=== PATIENT | male | born 1960 | race Caucasian/White ===

== ENCOUNTER 2024-12-19 12:40 | Observation (INO) | payer OTHER ==
[~2024-12-19] VITALS: Ht 188 cm; Wt 63.3 kg
[2024-12-19] MEDS ORDERED: MIRT15 PO (13:25)
[2024-12-19] MEDS ORDERED: OMEP20ER PO (13:25)
[2024-12-19] MEDS ORDERED: Aspir 8181 MG PO (13:25)
[2024-12-19] MEDS ORDERED: SERT100 PO (13:25)
[2024-12-19] MEDS ORDERED: CREON DR 12,001 EACH PO (13:26)
[2024-12-19 14:29] LABS: Source, Urine Clean Catch
[2024-12-19 14:32] LABS: Appearance, Urine Clear (Clear); Bilirubin, Urine Neg (Neg); Blood, Urine 1+ (Neg); Color, Urine Yellow (P-Yellow); Glucose Qualitative, Urine Neg (Neg); Ketones, Urine Neg (Neg); Leukocyte Esterase, Urine Neg (Neg); Nitrite, Urine Neg (Neg); Protein, Urine Neg (Neg); Urobilinogen, Urine NORM (Normal)
[2024-12-19 14:38] LABS: Bacteria Rare /hpf; Red Blood Cells, Urine 0-2 /hpf (0-2); Squamous Epithelial Cells Not Seen /hpf (Few); White Blood Cells, Urine 0-2 /hpf (0-5)
[2024-12-19 14:47] LABS: BASOPHILS ABSOLUTE AUTO 0.06 K/mm3 (0.00-0.23); BASOPHILS PERCENT AUTO 1 % (0-2); EOSINOPHILS ABSOLUTE AUTO 0.21 K/mm3 (0.00-0.68); EOSINOPHILS PERCENT AUTO 4 % (0-6); Hematocrit 29.4 % (37.0-53.0); Hemoglobin 9.6 g/dL (13.5-17.5); IMMATURE GRAN ABSOLUTE AUTO 0.01 K/mm3 (0.00-0.10); IMMATURE GRAN PERCENT AUTO 0 % (0-1); LYMPHOCYTES ABSOLUTE AUTO 1.49 K/mm3 (0.84-5.20); LYMPHOCYTES PERCENT AUTO 31 % (21-46); MONOCYTES ABSOLUTE AUTO 0.44 K/mm3 (0.16-1.47); MONOCYTES PERCENT AUTO 9 % (4-13); Mean Corpuscular HGB 34.2 pg (26.0-34.0); Mean Corpuscular HGB Conc 32.7 g/dL (31.5-36.5); Mean Corpuscular Volume 105 fL (80-100); Mean Platelet Volume 9.8 fL (9.1-12.4); NEUTROPHILS ABSOLUTE AUTO 2.54 K/mm3 (1.96-9.15); NEUTROPHILS PERCENT AUTO 53 % (41-73); Platelet Count 192 K/mm3 (150-400); RDW Coefficient Variation 12.5 % (11.7-14.2); Red Blood Cell Count 2.81 M/mm3 (4.30-5.90); White Blood Cell Count 4.75 K/mm3 (4.00-11.30)
[2024-12-19 15:12] LABS: Bun/Creatinine Ratio 12.8 (12.0-20.0); Calcium, Blood 8.2 mg/dL (8.5-10.1); Creatinine, Blood 1.09 mg/dL (0.60-1.20); Magnesium, Blood 1.6 mg/dL (1.6-2.4); Phosphorus, Blood 3.6 mg/dL (2.5-4.9)
[2024-12-19] MEDS ORDERED: Acetaminophen 325 MG TABLET PO PRN (17:10)
[2024-12-19 19:12] VITALS: BP 114/82
[2024-12-19] MEDS ORDERED: Docusate Sodium 100 MG Cap PO SCH (21:00)
[2024-12-20 04:36] VITALS: BP 96/71
[2024-12-20 05:10] LABS: BASOPHILS ABSOLUTE AUTO 0.07 K/mm3 (0.00-0.23); BASOPHILS PERCENT AUTO 2 % (0-2); EOSINOPHILS ABSOLUTE AUTO 0.24 K/mm3 (0.00-0.68); EOSINOPHILS PERCENT AUTO 5 % (0-6); Hematocrit 28.3 % (37.0-53.0); Hemoglobin 9.2 g/dL (13.5-17.5); IMMATURE GRAN ABSOLUTE AUTO 0.01 K/mm3 (0.00-0.10); IMMATURE GRAN PERCENT AUTO 0 % (0-1); LYMPHOCYTES ABSOLUTE AUTO 1.27 K/mm3 (0.84-5.20); LYMPHOCYTES PERCENT AUTO 29 % (21-46); MONOCYTES PERCENT AUTO 9 % (4-13); Mean Corpuscular HGB 33.8 pg (26.0-34.0); Mean Corpuscular HGB Conc 32.5 g/dL (31.5-36.5); Mean Corpuscular Volume 104 fL (80-100); Mean Platelet Volume 10.1 fL (9.1-12.4); NEUTROPHILS ABSOLUTE AUTO 2.45 K/mm3 (1.96-9.15); NEUTROPHILS PERCENT AUTO 55 % (41-73); Platelet Count 205 K/mm3 (150-400); RDW Coefficient Variation 12.4 % (11.7-14.2); RDW Standard Deviation 47.6 fL (35.1-46.3); Red Blood Cell Count 2.72 M/mm3 (4.30-5.90); White Blood Cell Count 4.44 K/mm3 (4.00-11.30)
[2024-12-20 05:58] LABS: Magnesium, Blood 1.5 mg/dL (1.6-2.4)
[2024-12-20 05:59] LABS: Albumin, Blood 1.9 g/dL (3.4-5.0); Albumin/Globulin Ratio 0.6 (0.8-1.8); Bilirubin, Total 0.4 mg/dL (0.1-1.0); Bun/Creatinine Ratio 12.7 (12.0-20.0); Calcium, Blood 7.7 mg/dL (8.5-10.1); Creatinine, Blood 1.02 mg/dL (0.60-1.20); Globulin, Blood 3.2 g/dL (2.2-4.0); Potassium, Blood 3.9 mmol/L (3.5-5.5); Total Protein, Blood 5.1 g/dL (6.4-8.2)
[2024-12-20] MEDS ORDERED: Omeprazole 20 MG CapCR PO SCH (06:00)
--- NOTE | 2024-12-20 06:22 | NUR ---
SHIFT SUMMARY: Pt is admitted for general weakness and is a full code. Is alert and able to make needs known. ADLs have been mostly 1p but did not get out of bed. Denies pain or discomfort when asked.
[2024-12-20 07:25] VITALS: BP 104/73
[2024-12-20] MEDS ORDERED: Insulin Human Lispro 100 Units/ML 3ML Syringe SC SCH (07:30)
[2024-12-20] MEDS ORDERED: Mag Sulfate 1 GM/D5% 100ML 100 ML IV STA (08:08)
[2024-12-20] MEDS ORDERED: Ferrous Sulfate 325 MG Tab PO SCH (08:30)
--- NOTE | 2024-12-20 08:30 | NUR ---
pt laying in bed awake a/ox4 a bit slow to answer, flat affect, cooperative with care, follows commands well, denies pain, lungs are clear in upper ivory, dim in bases, resp even and unlabored, no cough noted, on r/a, hrr, no edema noted, ppp+1, cap refill<3 sec vs stable, afebrile, piv to lac, site is clear and patent, btx4, voids via urinal, abd flat soft nontender, reports several bm's yesterday and did not want stool softeners, voids without diff, skin c/w/d, maew, but is profoundly weak, cheryle, call light in reach.
[2024-12-20] MEDS ORDERED: Enoxaparin 40 MG/0.4 ML SYR SC SCH (09:00)
[2024-12-20] MEDS ORDERED: Amylase/Lipase/Protease DR Cap 12,000 PO SCH (09:00)
[2024-12-20] MEDS ORDERED: Aspirin 81 MG TabEC PO SCH (09:00)
[2024-12-20] MEDS ORDERED: Sertraline HCl 100 MG Tab PO SCH (09:00)
[2024-12-20] MEDS ORDERED: Multivitamins 1 Tab PO SCH (12:00)
[2024-12-20 16:25] VITALS: BP 97/76
--- NOTE | 2024-12-20 19:06 | NUR ---
pt was up to recliner chair today, and worked with P.T. very weak, no acute changes this shift. call light in reach.
[2024-12-20 19:47] VITALS: BP 102/74
[2024-12-20] MEDS ORDERED: Mirtazapine 15 MG Tab PO SCH (21:00)
[2024-12-21] VITALS (8 sets, daily range): BP systolic 82–116; BP diastolic 63–80
[2024-12-21] MEDS ORDERED: NS 500 ML IV SCH (00:20)
--- NOTE | 2024-12-21 06:39 | NUR ---
SHIFT SUMMARY: Pt is admitted for general weakness and is a full code. Is alert and able to make needs known. ADLs have been mostly 1p but did not get out of bed. Denies pain or discomfort when asked. BP was reported at 88/64 map 72. Reported to provider who gave T.O. of 500ml ns bolus. Bp after bolus machine was 82/63. Manual was 96/74 map of 81. Informed charge nurse was told to keep an eye on PT.
--- NOTE | 2024-12-21 10:27 | NUR ---
pt laying in bed awake a/ox4, flat afffect, pleasant and cooperative with care, follows commands well, denies pain, lungs are clear in upper ivory, dim in bases, resp even and unlabored, no cough noted, hrr, no edema noted, ppp+1, cap refill<3 sec, piv to rfa and rac, site is clear and patent, btx4, abd flat soft nontender, nontender, voids without diff, skin c/w/d, maew, profoundly weak, cheryle, call light in reach.
[2024-12-21] MEDS ORDERED: Amylase/Lipase/Protease DR Cap 12,000 PO SCH (11:30)
[2024-12-21] MEDS ORDERED: Spironolactone 25 MG Tab PO SCH (12:08)
[2024-12-21] MEDS ORDERED: Spironolactone 50 MG Tab PO SCH (13:00)
--- NOTE | 2024-12-21 14:16 | NUR ---
Pt sitting up in a chair, called nurse in room to report his right side of his jodi area is on fire burning, he didn't know if it's a rash or not, nurse noted a swelling in pubic area that he can not tolerate to be touched, no rash noted, called Dr. Enamorado, he will come to see him and ordered a surgical consult, Dr. Pedroza answering service notified. pt is in the bathroom at this time, capacity management specialist in room assisting him. call light in reach.
--- NOTE | 2024-12-21 18:41 | NUR ---
Pt resting in bed, he was assisted to the bathroom to use the toilet, was going to take a shower but decided against it, resting in bed at this time, he states the swelling in his pubic area is not painful if he doesn't move, if he moves it's severe, no further changes this shift, call light in reach.
[2024-12-22 04:20] VITALS: BP 101/73
[2024-12-22 05:46] LABS: Bun/Creatinine Ratio 16.3 (12.0-20.0); Calcium, Blood 7.9 mg/dL (8.5-10.1); Creatinine, Blood 0.98 mg/dL (0.60-1.20); Potassium, Blood 4.4 mmol/L (3.5-5.5)
[2024-12-22 07:38] VITALS: BP 99/74
[2024-12-22] MEDS ORDERED: Spironolactone 25 MG Tab PO SCH (09:00)
[2024-12-22 16:04] VITALS: BP 109/75
--- NOTE | 2024-12-22 18:13 | NUR ---
SHIFT SUMMARY PT A&OX4, VSS, AMB W/ ASSIST, TOLERATING PO, VOIDING, AND PAIN MANAGED. PHYSICAL THERAPY ATTEMPTED, BUT PT REFUSED STATING HE WAS UNABLE TO PARTICIPATE DUE TO PELVIC PAIN W/ MOVEMENT. THIS RN CALLED OFFICE ON SURGICAL CONSULT. PT AWAITING SURGEON TO ROUND. D/C PLACEMENT IN PROGRESS AT THIS TIME. NO OTHER ACUTE CHANGES. CALL LIGHT WITHIN REACH AND PT ABLE TO MAKE NEEDS KNOWN.
[2024-12-22 19:04] VITALS: BP 110/81
[2024-12-23 03:30] VITALS: BP 99/64
--- NOTE | 2024-12-23 04:10 | NUR ---
SHIFT SUMMARY 64 YR M ADMITTED ON 12/19/24. FULL CODE. NO ACUTE CHANGES THIS SHIFT. PT HAD NO C/O PAIN OR DISCOMFORT THROUGHOUT THE NIGHT. HE IS PLEASANT AND COOPERATIVE WITH CARE AND ABLE TO MAKE HIS NEEDS KNOWN. NO NEW CHANGES TO REPORT. BED IN LOW POSITION AND CALL LIGHT IN REACH.
[2024-12-23 05:32] LABS: Bun/Creatinine Ratio 22.5 (12.0-20.0); Creatinine, Blood 0.89 mg/dL (0.60-1.20)
[2024-12-23 07:32] VITALS: BP 98/65
[2024-12-23 16:20] VITALS: BP 109/80
--- NOTE | 2024-12-23 17:53 | NUR ---
SHIFT SUMMARY RESEARCH PROFESSOR ROUNDED ON PT. NO SURGICAL INTERVENTION FOR SUSPECTED HERNIA AT THIS TIME. PT DID NOT C/O PAIN OR DISCOMFORT T/O SHIFT. NO ACUTE CHANGES. PLAN FOR D/C TOMORROW HOME W/ HH. CALL LIGHT IN REACH AND PT ABLE TO MAKE NEEDS KNOWN.
[2024-12-23 19:55] VITALS: BP 102/74
[2024-12-24 03:55] VITALS: BP 99/73
--- NOTE | 2024-12-24 05:22 | NUR ---
SHIFT SUMMARY NO ACUTE CHANGES THROUGHOUT THE SHIFT. PT INDEPENDENTLY USED URINAL THROUGHOUT THE NIGHT AND APPEARS TO HAVE SLEPT WELL. USING CALL LIGHT APPROPRIATELY. NO PAIN REPORTED. VITAL SIGNS STABLE. CALL LIGHT IN REACH, WILL REPORT TO ONCOMING RN.
[2024-12-24 07:36] VITALS: BP 98/71
[2024-12-24] MEDS ORDERED: GlipiZIDE 5 MG TabCR PO SCH (08:00)
[2024-12-24] MEDS ORDERED: Ondansetron 4 MG TAB PO PRN (16:20)
[2024-12-24 16:50] VITALS: BP 113/80
--- NOTE | 2024-12-24 18:46 | NUR ---
DAY SUMMARY A&OX4, VSS, DENIED PAIN THIS SHIFT, NO C/O ANY KIND, BEDRESTING AT THIS TIME, CALL LIGHT IN REACH, WILL CONT TO MONITOR UNTIL REPORT GIVEN TO ONCOMING NURSE.
[2024-12-24 20:09] VITALS: BP 106/83
[2024-12-25 03:15] VITALS: BP 100/74
--- NOTE | 2024-12-25 06:44 | NUR ---
SHIFT SUMMARY VSS. APPEARS COMFORTABLE. CBG STABLE. PUT ON BED ALARM. COMPLIANT TO CARE. PREFERS TO BE UNDISTURBED ON SLEEP THEN PUT BED ALARM ON. SEEMS HE SLEPT VERY WELL AT NIGHT. CONTINENT BUT THE BED GOT SOILED BECAUSE OF SPILLING URINE FROM THE URINAL. BEDDINGS CHANGED AND APPLIED GOWN WITH LONG SLEEVES TO MINIMIZE PT SCRATCHING ALL OVER HIS BODY HIS SKIN HAS MULTIPLE UNHEALED WOUNDS.
[2024-12-25 08:02] VITALS: BP 112/83
[2024-12-25 15:49] VITALS: BP 110/75
--- NOTE | 2024-12-25 15:59 | NUR ---
DAY SUMMARY NO ACUTE CHANGES, NO C/O ANY KIND, BEDRESTING AT THIS TIME, CALL LIGHT IN REACH, WILL CONT TO MONITOR UNTIL REPORT GIVEN TO ONCOMING NURSE.
[2024-12-25 20:34] VITALS: BP 101/72
[2024-12-26 05:13] VITALS: BP 108/71
--- NOTE | 2024-12-26 05:34 | NUR ---
SHIFT SUMMARY PT SLEPT INTERMITTENTLY DURING THE NIGHT. GENERALIZED WEAKNESS X ALL EXTREMITIES CONTINUES. PT SAT AT EDGE OF BED ON OCCASION, BUT DID NOT GET OOB TONIGHT. USING URINAL TO VOID. PT C/O BILAT INGUINAL HERNIA PAIN WHEN MOVING, BUT DENIES PAIN WHEN LYING STILL. HERNIAS ARE SOFT, BUT TENDER TO TOUCH. PT CONTINUES TO PICK AT SCABS AND MULTIPLE AREAS ON ARMS/LEGS WITH BLEEDING DURING THE NIGHT. BED ALARM ON, BED IN LOWEST POSITION, CALL LIGHT WITHIN REACH, SIDERAILS UP X2.
[2024-12-26 07:20] VITALS: BP 97/73
[2024-12-26 08:24] VITALS: BP 112/78
[2024-12-26] MEDS ORDERED: HUMALOG KW100 UNIT/1 SC (12:01)
[2024-12-26] MEDS ORDERED: BASAGLAR K100 UNIT/1 SC (12:01)
[2024-12-26] MEDS ORDERED: FERSU300 PO (13:38)
[2024-12-26] MEDS ORDERED: DAILY-VITE1 EAC1 PO (13:38)
[2024-12-26] MEDS ORDERED: SPIR25 PO (13:39)
[2024-12-26 15:18] VITALS: BP 118/83
--- NOTE | 2024-12-26 16:24 | NUR ---
DISCHARGE [id number] WITH PT HE VERBALIZED UNDERSTANDING MEDS AND ISNT. IV PULLED BY AIDE INTACT. NO TELE. PT DRESSED SELF AND AMBULATED TO BATHROOM BY SELF. WHEELED TO DOOR BY AIDE AT 1555. GOING TO PARENTS CAR TO TRANSPORT.
== END 2024-12-26 16:04 | disposition home health service (06) ==
LOC: ER 12:40 → MEDS 12:41
PROVIDERS: Internal Medicine; Student in an Organized Health Care Education/Training Program; ADMIT Student in an Organized Health Care Education/Training Program
DX: K40.20 Bilateral inguinal hernia, without obstruction or gangrene, not specified as recurrent (principal); K70.31 Alcoholic cirrhosis of liver with ascites; E43 Unspecified severe protein-calorie malnutrition; E11.9 Type 2 diabetes mellitus without complications; D50.9 Iron deficiency anemia, unspecified; F43.10 Post-traumatic stress disorder, unspecified; L40.9 Psoriasis, unspecified; I10 Essential (primary) hypertension; K21.9 Gastro-esophageal reflux disease without esophagitis; Z79.899 Other long term (current) drug therapy; Z88.0 Allergy status to penicillin; Z88.8 Allergy status to other drugs, medicaments and biological substances
CPT/HCPCS: 36415; 70450; 71046; 76705; 80048; 80053; 81001; 82607; 82728; 82746; 82947; 83036; 83540; 83550; 83735; 84100; 85025; 85610; 93005; 93010; 96365; 96372; 97110; 97116; 97161; 97530; 99285-25; A9270; G0378; J1650; J3475; J7040